=== PATIENT | male | born 1995 | race Asian ===

== ENCOUNTER 2024-06-13 15:24 | Inpatient (IN) | payer BC ==
[~2024-06-13] VITALS: Ht 170.2 cm; Wt 123.6 kg
[2024-06-13 16:47] LABS: BILIRUBIN,URINE SMALL (Neg); CLARITY,URINE CLEAR (Clear); COLOR,URINE YELLOW (Yellow); GLUCOSE, URINE NEGATIVE (Neg); KETONES,URINE NEGATIVE (Neg); LEUKOCYTE ESTERASE ,URINE NEGATIVE (Neg); NITRITES, URINE NEGATIVE (Neg); OCCULT BLOOD,URINE LARGE (Neg); PROTEIN,URINE 100 mg/dl (Neg)
[2024-06-13 16:56] LABS: UA COLLECTION TYPE NON-SPECIFIED
[2024-06-13 16:57] LABS: BACTERIA,URINE FEW /HPF (Neg); MUCUS STRANDS FEW /LPF (Neg); SQUAMOUS EPITHELIAL CELL,UR FEW /LPF (FEW); WBC,URINE 0-4 /HPF (0-4)
[2024-06-13] MEDS: normal saline 1000ML IV soln IVB ONE (17:06)
[2024-06-13 17:14] LABS: BASOPHILS # (AUTO) 0.1 X10'3 (0-0.2); BASOPHILS % (AUTO) 0.7 % (0-1); EOSINOPHILS # (AUTO) 0.2 X10'3 (0-0.9); EOSINOPHILS % (AUTO) 1.3 % (0-6); HEMATOCRIT 47.9 % (42.0-52.0); HEMOGLOBIN 16.7 g/dl (14.0-17.9); LYMPHOCYTES # (AUTO) 3.2 X10'3 (1.1-4.8); LYMPHOCYTES % (AUTO) 19.9 % (21-51); MEAN CORPUSCULAR HEMOGLOBIN 28.5 PG (27.0-31.0); MEAN CORPUSCULAR HGB CONC 34.8 g/dL (33.0-36.5); MEAN CORPUSCULAR VOLUME 81.8 FL (78-98); MEAN PLATELET VOLUME 7.6 FL (7.4-10.4); MONOCYTES # (AUTO) 1.6 X10'3 (0-0.9); MONOCYTES % (AUTO) 10.2 % (2-12); NEUTROPHILS # (AUTO) 10.8 X10'3 (1.8-7.7); NEUTROPHILS % (AUTO) 67.9 % (42-75); PLATELET COUNT 233 X10'3 (140-440); RED BLOOD COUNT 5.85 X10'6 (4.70-6.10); RED CELL DISTRIBUTION WIDTH 13.6 % (11.5-14.5); WHITE BLOOD COUNT 15.9 X10'3 (4.5-11.0)
[2024-06-13 17:29] LABS: ALANINE AMINOTRANSFERASE 47 U/L (12-78); ALBUMIN 3.7 G/DL (3.4-5.0); ALBUMIN/GLOBULIN RATIO 0.7 (1.1-1.5); ALKALINE PHOSPHATASE 69 IU/L (46-116); ANION GAP 8 (8-16); ASPARTATE AMINO TRANSFERASE 17 U/L (10-37); BILIRUBIN,TOTAL 2.1 MG/DL (0.1-1.0); BLOOD UREA NITROGEN 13 MG/DL (7-18); BUN/CREATININE RATIO 14.8 (10.0-20.0); CALCIUM 8.8 MG/DL (8.5-10.1); CHLORIDE 102 MMOL/L (99-107); CREATININE 0.88 MG/DL (0.60-1.10); GLUCOSE 96 MG/DL (70-104); LIPASE 43 U/L (16-77); POTASSIUM 3.1 MMOL/L (3.5-5.1); SODIUM 140 MMOL/L (135-145); TOTAL CARBON DIOXIDE 30.1 MMOL/L (24-32); TOTAL PROTEIN 8.7 G/DL (6.4-8.2); eCRCL 119 ML/MIN; eGFR > 90 ML/MIN
[2024-06-13] MEDS: ondansetron/PF 4mg/2ml inj IV ONE (18:47)
[2024-06-13] MEDS: morphine 4 MG/ML inj SYRINge IV ONE (18:47)
[2024-06-13] MEDS: piperacillin/tazo 3.375gm/50ml 50 ML IV ONE (18:48)
[2024-06-13] MEDS ORDERED: mag hydrox/Alum hydrox/simeth 30ml oral suspension PO PRN (19:00)
[2024-06-13] MEDS ORDERED: acetaminophen 325mg tablet PO PRN (19:00)
[2024-06-13] MEDS ORDERED: magnesium sulf-water 4G/100mL 100 ML IV PRN (19:00)
[2024-06-13] MEDS ORDERED: magnesium sulf-water 2g/50mL 50 ML IV PRN (19:00)
[2024-06-13] MEDS ORDERED: potassium Cl 20 mEq SR tablet PO PRN (19:00)
[2024-06-13] MEDS ORDERED: ondansetron/PF 4mg/2ml inj IV PRN (19:00)
[2024-06-13] MEDS ORDERED: potassium Cl 40MEQ/1/2NS 520ml 520 ML IV PRN (19:00)
[2024-06-13] MEDS ORDERED: magnesium hydroxide 30ml (MOM) UD suspension PO PRN (19:00)
[2024-06-13] MEDS ORDERED: morphine 2 MG/ML inj. syringe IV PRN ×2 (19:00)
[2024-06-13] MEDS ORDERED: magnesium Cl slow-release 64mg tablet PO PRN (19:00)
[2024-06-13] MEDS ORDERED: NO HOME MEDS (19:31)
[2024-06-13] MEDS: normal saline 1000ml 1,000 ML IV SCH (19:38)
[2024-06-13] MEDS: K and/or MAG REPLACEMENT MC SCH (20:00)
[2024-06-13] MEDS: heparin, porcine 5000 units/ml vial SQ SCH (20:00)
[2024-06-13] MEDS: docusate sod 100mg capsule PO SCH (20:00)
[2024-06-13] MEDS: potassium Cl 20 mEq SR tablet PO PRN (22:36)
[2024-06-13 23:30] VITALS: BP_SYST 133; BP_SYST 135; BP_DIAS 78; BP_DIAS 89; PULSE 95; PULSE 99; RESP 16; TEMP 97.7; TEMP 97.9; TEMP 98.1; O2SAT 95; O2SAT 97
[2024-06-14] VITALS (22 sets, daily range): BP systolic 113–145; BP diastolic 61–91; PULSE 80–117; RESP 15–27; TEMP 97.6–98.7; O2SAT 91–98
[2024-06-14 05:47] LABS: BASOPHILS # (AUTO) 0.1 X10'3 (0-0.2); BASOPHILS % (AUTO) 0.5 % (0-1); EOSINOPHILS # (AUTO) 0.2 X10'3 (0-0.9); EOSINOPHILS % (AUTO) 1.3 % (0-6); HEMATOCRIT 43.4 % (42.0-52.0); LYMPHOCYTES # (AUTO) 2.5 X10'3 (1.1-4.8); LYMPHOCYTES % (AUTO) 21.5 % (21-51); MEAN CORPUSCULAR HEMOGLOBIN 28.4 PG (27.0-31.0); MEAN CORPUSCULAR HGB CONC 34.6 g/dL (33.0-36.5); MEAN PLATELET VOLUME 7.6 FL (7.4-10.4); MONOCYTES % (AUTO) 8.3 % (2-12); NEUTROPHILS % (AUTO) 68.4 % (42-75); PLATELET COUNT 218 X10'3 (140-440); RED BLOOD COUNT 5.29 X10'6 (4.70-6.10); RED CELL DISTRIBUTION WIDTH 13.2 % (11.5-14.5); WHITE BLOOD COUNT 11.7 X10'3 (4.5-11.0)
[2024-06-14 06:12] LABS: ALANINE AMINOTRANSFERASE 34 U/L (12-78); ALBUMIN 3.2 G/DL (3.4-5.0); ALBUMIN/GLOBULIN RATIO 0.8 (1.1-1.5); ALKALINE PHOSPHATASE 58 IU/L (46-116); ANION GAP 9 (8-16); ASPARTATE AMINO TRANSFERASE 18 U/L (10-37); BILIRUBIN,TOTAL 1.4 MG/DL (0.1-1.0); BLOOD UREA NITROGEN 11 MG/DL (7-18); BUN/CREATININE RATIO 11.8 (10.0-20.0); CALCIUM 8.5 MG/DL (8.5-10.1); CHLORIDE 105 MMOL/L (99-107); CREATININE 0.93 MG/DL (0.60-1.10); GLUCOSE 94 MG/DL (70-104); MAGNESIUM 1.9 MG/DL (1.5-2.4); POTASSIUM 3.4 MMOL/L (3.5-5.1); SODIUM 139 MMOL/L (135-145); TOTAL CARBON DIOXIDE 25.1 MMOL/L (24-32); TOTAL PROTEIN 7.3 G/DL (6.4-8.2); eCRCL 113 ML/MIN; eGFR > 90 ML/MIN
[2024-06-14] MEDS: metroNIDAZOLE-Flagyl 500mg/NS 100 ML IV SCH (09:19)
[2024-06-14] MEDS: CefTRIAXone/D5W-Rocephin 1gm 50 ML IV SCH (10:18)
[2024-06-14] MEDS ORDERED: LIDOcaine 1% 30ml preserv. free vial ONE (11:32)
[2024-06-14] MEDS ORDERED: BUPIVAcaine 2.5mg/ml inj 50ml vial (contains preservative) ONE (11:32)
[2024-06-14] MEDS ORDERED: propofol inj 20 ML IV ONE (12:07)
[2024-06-14] MEDS ORDERED: midazolam 1 mg/ML 2ml injection ONE (12:07)
[2024-06-14] MEDS ORDERED: fentaNYL/PF 50MCG/1 ML 2ML syringe ONE (12:07)
[2024-06-14] MEDS ORDERED: rocuronium 10mg/ml inj IV ONE (12:07)
[2024-06-14] MEDS ORDERED: labetalol 20mg/4ml (5mg/ml) syringe IV PRN (12:20)
[2024-06-14] MEDS ORDERED: morphine 2 MG/ML inj. syringe IV PRN (12:20)
[2024-06-14] MEDS ORDERED: meperidine/PF 25mg/ml syringe IV PRN (12:20)
[2024-06-14] MEDS ORDERED: HYDROmorphone/PF 0.2 MG/ML SYRINGE IV PRN ×2 (12:20)
[2024-06-14] MEDS: ringers solution, lacted 1,000 ML IV SCH (12:20)
[2024-06-14] MEDS ORDERED: ondansetron/PF 4mg/2ml inj IV PRN (12:20)
[2024-06-14] MEDS ORDERED: sevoflurane 250ml liquid IH ONE (12:34)
[2024-06-14] MEDS ORDERED: neostigmine methylsulfate 1 MG/ML 10ml vial ONE (13:43)
[2024-06-14] MEDS ORDERED: glycopyrrolate 0.2mg/ml inj ONE (13:43)
[2024-06-14] MEDS: morphine 4 MG/ML inj SYRINge IV PRN (14:26)
[2024-06-14] MEDS: acetaminophen 1,000mg/100ml IV 100 ML IV PRN (14:27)
[2024-06-14] MEDS ORDERED: naloxone 0.4 mg/ml inj IV PRN (14:50)
[2024-06-14] MEDS: BUPIVAcaine 0.25% w/Epi /PF 30ml vial IJ ONE (15:36)
[2024-06-14] MEDS: HYDROcodone/acetaminophen 10/325mg tab PO PRN (17:20)
[2024-06-15 02:00] VITALS: BP 151/88; PULSE 119; RESP 30; TEMP 100.3; O2SAT 93
[2024-06-15 05:00] VITALS: BP 128/78; PULSE 111; RESP 22; TEMP 98.9; O2SAT 94
[2024-06-15 05:57] LABS: BASOPHILS % (AUTO) 0.3 % (0-1); EOSINOPHILS % (AUTO) 0.3 % (0-6); HEMATOCRIT 42.9 % (42.0-52.0); LYMPHOCYTES # (AUTO) 2.3 X10'3 (1.1-4.8); LYMPHOCYTES % (AUTO) 15.3 % (21-51); MEAN CORPUSCULAR HEMOGLOBIN 28.4 PG (27.0-31.0); MEAN CORPUSCULAR HGB CONC 34.9 g/dL (33.0-36.5); MEAN CORPUSCULAR VOLUME 81.3 FL (78-98); MEAN PLATELET VOLUME 7.3 FL (7.4-10.4); MONOCYTES # (AUTO) 1.2 X10'3 (0-0.9); MONOCYTES % (AUTO) 8.1 % (2-12); NEUTROPHILS # (AUTO) 11.2 X10'3 (1.8-7.7); PLATELET COUNT 252 X10'3 (140-440); RED BLOOD COUNT 5.28 X10'6 (4.70-6.10); RED CELL DISTRIBUTION WIDTH 13.2 % (11.5-14.5); WHITE BLOOD COUNT 14.7 X10'3 (4.5-11.0)
[2024-06-15 06:19] LABS: ALANINE AMINOTRANSFERASE 34 U/L (12-78); ALBUMIN 3.1 G/DL (3.4-5.0); ALBUMIN/GLOBULIN RATIO 0.7 (1.1-1.5); ALKALINE PHOSPHATASE 51 IU/L (46-116); ANION GAP 7 (8-16); ASPARTATE AMINO TRANSFERASE 11 U/L (10-37); BILIRUBIN,TOTAL 1.8 MG/DL (0.1-1.0); BLOOD UREA NITROGEN 8 MG/DL (7-18); BUN/CREATININE RATIO 9.9 (10.0-20.0); CALCIUM 8.3 MG/DL (8.5-10.1); CHLORIDE 102 MMOL/L (99-107); CREATININE 0.81 MG/DL (0.60-1.10); GLUCOSE 109 MG/DL (70-104); MAGNESIUM 1.8 MG/DL (1.5-2.4); POTASSIUM 3.9 MMOL/L (3.5-5.1); SODIUM 138 MMOL/L (135-145); TOTAL CARBON DIOXIDE 28.6 MMOL/L (24-32); TOTAL PROTEIN 7.3 G/DL (6.4-8.2); eCRCL 129 ML/MIN; eGFR > 90 ML/MIN
[2024-06-15 09:00] VITALS: RESP 16; O2SAT 98
[2024-06-15 10:00] VITALS: BP 146/93; PULSE 108; RESP 21; TEMP 100.2; O2SAT 95
[2024-06-15] MEDS: normal saline 1000ml 1,000 ML IV SCH (10:45)
[2024-06-15] MEDS ORDERED: acetaminophen 325mg tablet PO PRN (10:50)
[2024-06-15 18:00] VITALS: BP 135/84; PULSE 110; RESP 18; TEMP 97.8
[2024-06-15 22:00] VITALS: BP 146/86; PULSE 102; RESP 16; TEMP 97.7; O2SAT 94
[2024-06-16 05:49] LABS: BASOPHILS # (AUTO) 0.1 X10'3 (0-0.2); BASOPHILS % (AUTO) 0.7 % (0-1); EOSINOPHILS # (AUTO) 0.1 X10'3 (0-0.9); HEMATOCRIT 42.2 % (42.0-52.0); HEMOGLOBIN 14.5 g/dl (14.0-17.9); LYMPHOCYTES # (AUTO) 2.1 X10'3 (1.1-4.8); LYMPHOCYTES % (AUTO) 17.8 % (21-51); MEAN CORPUSCULAR HEMOGLOBIN 28.3 PG (27.0-31.0); MEAN CORPUSCULAR HGB CONC 34.4 g/dL (33.0-36.5); MEAN CORPUSCULAR VOLUME 82.2 FL (78-98); MEAN PLATELET VOLUME 7.7 FL (7.4-10.4); MONOCYTES # (AUTO) 1.1 X10'3 (0-0.9); MONOCYTES % (AUTO) 9.7 % (2-12); NEUTROPHILS # (AUTO) 8.3 X10'3 (1.8-7.7); NEUTROPHILS % (AUTO) 70.8 % (42-75); PLATELET COUNT 227 X10'3 (140-440); RED BLOOD COUNT 5.13 X10'6 (4.70-6.10); RED CELL DISTRIBUTION WIDTH 13.1 % (11.5-14.5); WHITE BLOOD COUNT 11.7 X10'3 (4.5-11.0)
[2024-06-16 06:12] LABS: ALANINE AMINOTRANSFERASE 25 U/L (12-78); ALBUMIN 2.9 G/DL (3.4-5.0); ALBUMIN/GLOBULIN RATIO 0.7 (1.1-1.5); ALKALINE PHOSPHATASE 50 IU/L (46-116); ANION GAP 8 (8-16); ASPARTATE AMINO TRANSFERASE 16 U/L (10-37); BLOOD UREA NITROGEN 6 MG/DL (7-18); BUN/CREATININE RATIO 8.2 (10.0-20.0); CALCIUM 8.3 MG/DL (8.5-10.1); CHLORIDE 103 MMOL/L (99-107); CREATININE 0.73 MG/DL (0.60-1.10); GLUCOSE 96 MG/DL (70-104); MAGNESIUM 1.7 MG/DL (1.5-2.4); POTASSIUM 3.5 MMOL/L (3.5-5.1); SODIUM 136 MMOL/L (135-145); TOTAL PROTEIN 7.3 G/DL (6.4-8.2); eCRCL 143 ML/MIN; eGFR > 90 ML/MIN
[2024-06-16 07:27] VITALS: BP 134/84; PULSE 104; RESP 14; TEMP 98.2; O2SAT 94
[2024-06-16] MEDS ORDERED: AMOX-580 PO (08:02)
[2024-06-16 09:00] VITALS: RESP 16
[2024-06-16] MEDS: HYDROcodone/acetaminophen 5mg/325mg tablet PO PRN (10:33)
[2024-06-16] MEDS ORDERED: HYDR-3965 PO (11:21)
[2024-06-16 12:10] VITALS: BP 134/86; PULSE 107; RESP 20; TEMP 98.3; O2SAT 95
== END 2024-06-16 12:23 | disposition home or self-care (01) | DRG 398 ==
LOC: ER 15:26 → ED HOLD 17:39 → SUR 3N 22:55
PROVIDERS: ADMIT Internal Medicine; ATTEND Internal Medicine
PROC: 8E0W4CZ Robotic Assisted Procedure of Trunk Region, Percutaneous Endoscopic Approach (ICD-10-PCS; 2024-06-14)
PROC: 0DTJ4ZZ Resection of Appendix, Percutaneous Endoscopic Approach (ICD-10-PCS; principal; 2024-06-14 12:34)
DX: K35.32 Acute appendicitis with perforation, localized peritonitis, and gangrene, without abscess (principal); Z68.41 Body mass index [BMI] 40.0-44.9, adult; R00.0 Tachycardia, unspecified; E66.9 Obesity, unspecified; K76.0 Fatty (change of) liver, not elsewhere classified; I10 Essential (primary) hypertension; D72.829 Elevated white blood cell count, unspecified; Z79.899 Other long term (current) drug therapy
CPT/HCPCS: 99285; Z7506; Z7508; 36415; 74176; 80053; 81001; 82948; 83690; 83735; 85025; 87081; A4215; A4618; G0378; J0131; J0696; J1644; J2003; J2250; J2270; J2405; J2543; J2704; J2710; J3010; J3490; J7030; S0020

== ENCOUNTER 2024-07-10 00:13 | Inpatient (IN) | payer BC ==
[~2024-07-10] VITALS: Ht 172.7 cm; Wt 122.1 kg
[~2024-07-10 00:13] MED LIST: HYDR-3965 PO
[2024-07-10] MEDS ORDERED: iohexol 300mg/ml 100ml inj. ONE (01:14)
[2024-07-10 01:24] LABS: BASOPHILS # (AUTO) 0.1 X10'3 (0-0.2); BASOPHILS % (AUTO) 0.5 % (0-1); EOSINOPHILS # (AUTO) 0.2 X10'3 (0-0.9); EOSINOPHILS % (AUTO) 1.9 % (0-6); HEMATOCRIT 46.1 % (42.0-52.0); HEMOGLOBIN 15.4 g/dl (14.0-17.9); LYMPHOCYTES # (AUTO) 2.7 X10'3 (1.1-4.8); LYMPHOCYTES % (AUTO) 23.7 % (21-51); MEAN CORPUSCULAR HEMOGLOBIN 27.5 PG (27.0-31.0); MEAN CORPUSCULAR HGB CONC 33.3 g/dL (33.0-36.5); MEAN CORPUSCULAR VOLUME 82.7 FL (78-98); MEAN PLATELET VOLUME 7.6 FL (7.4-10.4); MONOCYTES % (AUTO) 9.1 % (2-12); NEUTROPHILS # (AUTO) 7.4 X10'3 (1.8-7.7); NEUTROPHILS % (AUTO) 64.8 % (42-75); PLATELET COUNT 246 X10'3 (140-440); RED BLOOD COUNT 5.58 X10'6 (4.70-6.10); RED CELL DISTRIBUTION WIDTH 13.1 % (11.5-14.5); WHITE BLOOD COUNT 11.4 X10'3 (4.5-11.0)
[2024-07-10 01:28] LABS: BILIRUBIN,URINE NEGATIVE (Neg); CLARITY,URINE CLEAR (Clear); COLOR,URINE YELLOW (Yellow); GLUCOSE, URINE NEGATIVE (Neg); KETONES,URINE NEGATIVE (Neg); LEUKOCYTE ESTERASE ,URINE NEGATIVE (Neg); NITRITES, URINE NEGATIVE (Neg); OCCULT BLOOD,URINE MODERATE (Neg); PROTEIN,URINE 100 mg/dl (Neg); UROBILINOGEN,URINE 0.2 E.U/dL (0.2-1.0)
[2024-07-10 01:41] LABS: UA COLLECTION TYPE VOIDED
[2024-07-10 01:45] LABS: BACTERIA,URINE 1+ /HPF (Neg); CAL OXALATE CRYSTALS 1+ /HPF (NEGATIVE); MUCUS STRANDS MODERATE /LPF (Neg); SQUAMOUS EPITHELIAL CELL,UR FEW /LPF (FEW); WBC,URINE 0-4 /HPF (0-4)
[2024-07-10] MEDS: normal saline 1000ML IV soln IVB ONE (01:46)
[2024-07-10 02:44] LABS: ALANINE AMINOTRANSFERASE 94 U/L (12-78); ALBUMIN 3.9 G/DL (3.4-5.0); ALBUMIN/GLOBULIN RATIO 0.8 (1.1-1.5); ALKALINE PHOSPHATASE 86 IU/L (46-116); ANION GAP 9 (8-16); ASPARTATE AMINO TRANSFERASE 48 U/L (10-37); BILIRUBIN,TOTAL 0.9 MG/DL (0.1-1.0); BLOOD UREA NITROGEN 13 MG/DL (7-18); BUN/CREATININE RATIO 16.7 (10.0-20.0); CHLORIDE 105 MMOL/L (99-107); CREATININE 0.78 MG/DL (0.60-1.10); GLUCOSE 94 MG/DL (70-104); LIPASE 43 U/L (16-77); POTASSIUM 3.8 MMOL/L (3.5-5.1); SODIUM 139 MMOL/L (135-145); TOTAL PROTEIN 9.1 G/DL (6.4-8.2); eCRCL 139 ML/MIN; eGFR > 90 ML/MIN
[2024-07-10 03:34] LABS: APTT 27 SECONDS (22-32); PROTHROMBIN TIME 10.1 SECONDS (9.0-12.0)
[2024-07-10] MEDS: piperacillin/tazo 3.375gm/50ml 50 ML IV ONE (03:39)
[2024-07-10] MEDS: metroNIDAZOLE-Flagyl 750mg/NS 150 ML IV ONE (04:16)
[2024-07-10] MEDS ORDERED: NO HOME MEDS (04:16)
[2024-07-10] MEDS ORDERED: mag hydrox/Alum hydrox/simeth 30ml oral suspension PO PRN (04:40)
[2024-07-10] MEDS ORDERED: magnesium Cl slow-release 64mg tablet PO PRN (04:40)
[2024-07-10] MEDS ORDERED: ondansetron/PF 4mg/2ml inj IV PRN (04:40)
[2024-07-10] MEDS ORDERED: acetaminophen 325mg tablet PO PRN (04:40)
[2024-07-10] MEDS ORDERED: magnesium hydroxide 30ml (MOM) UD suspension PO PRN (04:40)
[2024-07-10] MEDS ORDERED: potassium Cl 20 mEq SR tablet PO PRN ×2 (04:40)
[2024-07-10] MEDS ORDERED: morphine 2 MG/ML inj. syringe IV PRN ×2 (04:40)
[2024-07-10] MEDS ORDERED: magnesium sulf-water 2g/50mL 50 ML IV PRN (04:40)
[2024-07-10] MEDS ORDERED: magnesium sulf-water 4G/100mL 100 ML IV PRN (04:40)
[2024-07-10] MEDS ORDERED: potassium Cl 40MEQ/1/2NS 520ml 520 ML IV PRN (04:40)
[2024-07-10 04:55] VITALS: BP 146/96; PULSE 85; RESP 16; TEMP 98.4; O2SAT 97
[2024-07-10 05:10] VITALS: RESP 16; O2SAT 97
[2024-07-10 06:54] VITALS: BP 147/85; PULSE 85; RESP 16; TEMP 98.1; O2SAT 99
[2024-07-10 07:12] LABS: MAGNESIUM 2.1 MG/DL (1.5-2.4)
[2024-07-10 08:00] VITALS: RESP 16
[2024-07-10] MEDS: normal saline 1000ml 1,000 ML IV SCH (09:08)
[2024-07-10] MEDS: heparin, porcine 5000 units/ml vial SQ SCH (09:09)
[2024-07-10] MEDS: docusate sod 100mg capsule PO SCH (09:10)
[2024-07-10] MEDS: K and/or MAG REPLACEMENT MC SCH (09:10)
[2024-07-10 10:00] VITALS: BP 142/74; PULSE 84; RESP 18; TEMP 98.2; O2SAT 95
[2024-07-10] MEDS: CefTRIAXone 2gm/D5W 50ml BAG 50 ML IV SCH (10:41)
[2024-07-10] MEDS ORDERED: CEPH500C2 PO (15:25)
[2024-07-10] MEDS ORDERED: metroNIDAZOLE-Flagyl 500mg/NS 100 ML IV SCH (20:00)
== END 2024-07-10 17:00 | disposition home or self-care (01) | DRG 392 ==
LOC: ER 00:14 → ED HOLD 03:30 → SUR 3N 04:45
PROVIDERS: ADMIT Internal Medicine Pulmonary Disease; ATTEND Family Medicine
PROC: BW211ZZ Computerized Tomography (CT Scan) of Abdomen and Pelvis using Low Osmolar Contrast (ICD-10-PCS; principal; 2024-07-10)
DX: R10.11 Right upper quadrant pain (principal); R74.01 Elevation of levels of liver transaminase levels; I10 Essential (primary) hypertension; K76.89 Other specified diseases of liver; Z90.49 Acquired absence of other specified parts of digestive tract
CPT/HCPCS: 36415; 74177; 80053; 81001; 83605; 83690; 83735; 84145; 85025; 85610; 85730; 87040; 87081; 96361; 96365; 96367; 96368; 96372; 99285; G0378; J0696; J1644; J2543; J3490; J7030; Q9967